=== PATIENT | male | born 1965 | race Two or more races ===

== ENCOUNTER 2016-07-30 04:36 | Emergency (ER) | payer OTHER ==
--- NOTE | ~2016-07-30 | CR72 ---
[facility] A Service of [facility] & [facility] RADIOLOGY TEXT RESULTS PATIENT: LETICIA QUINTEROS LOCATION: [facility] : [birth year] UNIT #: [id number] AGE: [address]: Mari Murcia APRN SEX: M ORDER DR: [id number] [facility] [address] [place], [place] [address] [id number] MR#: [id number] Acc #: [id number] NAME: LETICIA QUINTEROS : 1965 SEX: M STUDY DATE/TIME: 07/30/2016 8:18 UNIT: [facility] ROOM: STUDY DESCRIPTION: CR Chest Single View Portable Attending Physician: Mari Murcia A.P.R.N. Ordering Physician: Ed Spencer Valdez M.D. Primary Care Physician: No Primary Care Physician MEDICAL IMAGING REPORT This report is preliminary unless electronic signature is present EXAM Portable chest, 07/30. INDICATION Chest pain today. History of hypertension and asthma. FINDINGS AP portable chest compared with 03/27/2015. Lung volumes remain low. There are new infiltrates in both ryw-if-[id number] lung zones which may reflect pneumonia or potentially some edema. Cardiac and mediastinal contours are normal and there is no pneumothorax. IMPRESSION Bilateral [id number] lung infiltrates are worrisome for pneumonia, although edema is in the differential diagnosis. Chest x-ray is otherwise negative. Dictated by... Danny Abdullahi Jr., M.D. THIS IS AN ELECTRONICALLY VERIFIED REPORT Danny Abdullahi Jr., M.D. at 07/30/2016 12:40 PM TUAN/jt TD: 07/30/2016 10:25 JOB #: [id number] MEDICAL IMAGING REPORT Page 1 of 1 COPY
--- NOTE | ~2016-07-30 | EKG ---
PATIENT: LETICIA QUINTEROS UNIT #: [id number] Ventricular Rate: 96 BPM Atrial Rate: 96 BPM P-R Interval: 154 ms QRS Duration: 94 ms Q-T Interval: 352 ms QTC Calculation(Bezet): 444 ms P [place]: 52 degrees Calculated R [place]: 73 degrees Calculated T [place]: 61 degrees Diagnosis Line: Normal sinus rhythm Diagnosis Line: Normal ECG Diagnosis Line: When compared with ECG of 26-MAR-2015 22:45, Diagnosis Line: No significant change was found Diagnosis Line: Confirmed by SHANTA OKEEFE MD ([id number]) on Diagnosis Line: 07/30/2016 10:42:23 PM INTERPRETING MD: LORY
[~2016-07-30 04:36] MED LIST: ALBUTEROL0.83 MG/ML IH; ATIVAN PO; BIAXIN PO; ERYTHROMYCIN S PO; IBUPROFEN800 MG PO; MUCUS ER600 MG PO; NEBULIZER MACHINE IH; VISTARIL50 MG PO
[2016-07-30 08:14] LABS: BASOPHIL% 0.4 % (0-2.5); EOSINOPHIL# 0.2 X10e3 (0-0.7); EOSINOPHIL% 2.1 % (0.0-7.0); HEMATOCRIT 40.8 % (38.0-50.0); HEMOGLOBIN 13.9 gm/dL (13.0-16.0); LYMPHOCYTE% 38.2 % (17.0-45.0); MEAN CELL VOLUME 84.4 FL (83-96); MEAN CORPUSCULAR HEMOGLOBIN 28.7 PG (28-34); MEAN CORPUSCULAR HGB CONC 34.1 g/dL (30-36); MEAN PLATELET VOLUME 7.7 FL (6.5-11.5); MONOCYTE# 0.8 X10e3 (0-1.0); MONOCYTE% 10.6 % (3.0-12.0); NEUTROPHIL# 3.8 X10e3 (1.5-7.1); NEUTROPHIL% 48.7 % (40-75); PLATELET COUNT 191 X10e3 (140-420); RED BLOOD COUNT 4.83 X10e (3.90-5.60); RED CELL DISTRIBUTION WIDTH 12.6 % (11.0-15.5); WHITE BLOOD COUNT 7.8 X10e3 (4.0-10.5)
[2016-07-30 08:15] LABS: DIFF IND NO
[2016-07-30 08:28] LABS: POC - CKMB <1.0 ng/mL (0.0-7.9); POC - TROPONIN <0.05 ng/mL (<=0.05)
[2016-07-30 08:49] LABS: ALBUMIN SERUM 3.5 g/dL (3.5-5.0); BILIRUBIN, DIRECT 0.1 mg/dL (0.0-0.2); BILIRUBIN,INDIRECT 0.4 mg/dL (0.0-0.9); BILIRUBIN,TOTAL 0.5 mg/dL (0.2-2.0); BUN/CREATININE RATIO 16.25; CALCIUM SERUM 8.8 mg/dL (8.4-10.2); CREATININE SERUM 0.8 mg/dL (0.6-1.4); GLOM FILT RATE Estimated 105.7 mL/min (>60); POTASSIUM 3.5 mmol/L (3.5-5.1); PROTEIN TOTAL SERUM 6.3 g/dL (6.0-8.3)
[2016-07-30 10:08] LABS: POC - CKMB <1.0 ng/mL (0.0-7.9); POC - TROPONIN <0.05 ng/mL (<=0.05)
== END 2016-07-30 11:54 | disposition home or self-care (01) ==
LOC: CED 04:36
PROVIDERS: Nurse Practitioner
DX: J18.1 Lobar pneumonia, unspecified organism (principal); H11.89 Other specified disorders of conjunctiva; I10 Essential (primary) hypertension; J45.909 Unspecified asthma, uncomplicated; G40.909 Epilepsy, unspecified, not intractable, without status epilepticus; F20.9 Schizophrenia, unspecified; Z90.49 Acquired absence of other specified parts of digestive tract; Z95.1 Presence of aortocoronary bypass graft; Z88.0 Allergy status to penicillin; Z87.891 Personal history of nicotine dependence
CPT/HCPCS: 36415; 71010; 80048; 80076; 82553; 83880; 84484; 85025; 93005; 96365; 99284; J0696